=== PATIENT | male | born 1980 | race African-American/Black ===

== ENCOUNTER 2021-04-12 20:04 | Emergency (ER) | payer SELFPAY | END 2021-04-12 22:15 | disposition home or self-care (01) | LOC: ERS 20:04 | DX: U07.1 COVID-19 (principal) | CPT/HCPCS: 99283 ==

== ENCOUNTER 2021-07-04 19:30 | Observation (INO) | payer SELFPAY ==
[2021-07-04 20:02] LABS: #Basophils 0.1 thou/uL (0.0-0.2); #Eosinphils 0.5 thou/uL (0.0-0.7); #Lymphocytes 1.9 thou/uL (1.20-3.40); #Monocytes 0.9 thou/uL (0.11-0.59); %Basophils 0.8 % (0.0-1.0); %Eosinophils 5.5 % (0.0-10.0); %Lymphocytes 19.8 % (21.0-51.0); %Monocytes 9.9 % (0.0-10.0); %Neutrophils 64.1 % (42.0-75.0); Hemoglobin 15.2 g/dL (14.0-18.0); Mean Corpuscular HGB CONC 34.1 g/dL (32.0-36.0); Mean Corpuscular Hemoglobin 27.3 pg (27.0-31.0); Mean Corpuscular Volume 79.9 fL (78.0-98.0); Platelet Count 208 thou/uL (130-400); RBC Distribution Width 12.8 % (11.5-14.5); Red Blood Cell (RBC) Count 5.58 mill/uL (4.70-6.10); White Blood Cell (WBC) Count 9.4 thou/uL (4.8-10.8)
[2021-07-04] MEDS ORDERED: Nitroglycerin 2% Ointment 1 INCH/1 GM Packet ONE (20:07)
[2021-07-04] MEDS ORDERED: Aspirin 325 MG TAB ONE (20:07)
[2021-07-04 20:20] LABS: ALT (SGPT) 27 U/L (8-55); AST (SGOT) 25 U/L (5-34); Albumin 4.3 g/dL (3.5-5.0); Alkaline Phosphatase 51 U/L (40-110); Anion Gap 11 mmol/L (10-20); BUN (Urea Nitrogen) 12 mg/dL (8.9-20.6); Bilirubin, Total 0.4 mg/dL (0.2-1.2); Calc. Creatinine Clearance 0 mL/min (70-130); Carbon Dioxide 31 mmol/L (22-29); Chloride 102 mmol/L (98-107); Globulin 3.4 g/dL (2.4-3.5); Glucose 94 mg/dL (70-105); Potassium 4.2 mmol/L (3.5-5.1); Protein, Total 7.7 g/dL (6.0-8.3); Sodium 140 mmol/L (136-145)
[2021-07-04] MEDS ORDERED: Ondansetron ODT 4 MG TAB PO PRN (21:27)
[2021-07-04] MEDS ORDERED: Famotidine 20 MG TAB PO PRN (21:27)
[2021-07-04] MEDS ORDERED: Ondansetron PF 4 MG/2 ML Vial IVP PRN (21:27)
[2021-07-04] MEDS ORDERED: Acetaminophen 325 MG TAB PO PRN (21:27)
[2021-07-04] MEDS ORDERED: hydrALAZINE 20 MG/ML VIAL SLOW IVP PRN (22:08)
[2021-07-04] MEDS ORDERED: Hydrochlorothiazide 25 MG TAB PO SCH (22:30)
[2021-07-04 23:29] LABS: Troponin I Less than 0.010 ng/mL (< 0.028)
[2021-07-04] MEDS ORDERED: Furosemide 20 MG/2 ML VIAL SLOW IVP SCH (23:36)
[2021-07-05] VITALS: BMI 32.5
[2021-07-05 02:01] LABS: Troponin I Less than 0.010 ng/mL (< 0.028)
[2021-07-05 05:36] LABS: Hemoglobin A1c 5.6 % (4.0-6.0)
[2021-07-05 05:45] LABS: Anion Gap 10 mmol/L (10-20); BUN (Urea Nitrogen) 13 mg/dL (8.9-20.6); Calc. Creatinine Clearance 129 mL/min (70-130); Calcium 9.9 mg/dL (7.8-10.44); Carbon Dioxide 32 mmol/L (22-29); Cardiac Risk 3.7 (Less than 4.5); Chloride 101 mmol/L (98-107); Cholesterol 157 mg/dl (< 200 Desired); Glucose 87 mg/dL (70-105); HDL Cholesterol 43 mg/dL (>60 Neg Risk); LDL Cholesterol, Calculated 95 mg/dL; Potassium 3.7 mmol/L (3.5-5.1); Sodium 139 mmol/L (136-145); Triglycerides 97 mg/dL (Less than 150)
[2021-07-05] MEDS ORDERED: Aspirin 81 mg Enteric Coated Tablet PO SCH (09:00)
[2021-07-05] MEDS ORDERED: Hydrochlorothiazide 25 MG TAB PO SCH (09:00)
[2021-07-05] MEDS ORDERED: Enoxaparin Sodium 40 MG/0.4 ML SYRINGE SC SCH (09:00)
[2021-07-05] MEDS ORDERED: ADENOSINE 60 MG/20 ML VIAL ONE (09:10)
[2021-07-05 13:00] LABS: SARS-CoV-2 PCR by NAA Not Detected (NotDetected)
[2021-07-05 15:03] VITALS: TEMP 97.6
[2021-07-05 15:45] VITALS: BP 156/93
[2021-07-05] MEDS ORDERED: Atorvastatin Calcium 20 MG TAB PO SCH (21:00)
== END 2021-07-05 18:08 | disposition home or self-care (01) ==
LOC: ERS 19:30 → 2SW 21:07
PROVIDERS: ADMIT Student in an Organized Health Care Education/Training Program; ATTEND Student in an Organized Health Care Education/Training Program
DX: R07.89 Other chest pain (principal); I16.0 Hypertensive urgency; I11.9 Hypertensive heart disease without heart failure; M79.89 Other specified soft tissue disorders; I83.92 Asymptomatic varicose veins of left lower extremity; Z20.822 Contact with and (suspected) exposure to COVID-19
CPT/HCPCS: 36415; 71045; 78452; 80048; 80053; 80061; 82550; 83036; 83880; 84443; 84484; 85025; 93005; 93017; 93306; 96374; A9500; G0378; J0153; J1940; U0003; U0005